=== PATIENT | male | born 1990 | race Caucasian/White ===

== ENCOUNTER 2020-09-04 18:09 | Emergency (ER) | payer BC, SELFPAY ==
[2020-09-04 18:10] VITALS: BP 150/84; PULSE 107; RESP 20; TEMP 38.8; O2SAT 97; BMI 40.7
--- NOTE | 2020-09-04 18:46 | HMH.EDUTC ---
[facility] [place] Disposition Clinical Impression: Viral upper respiratory illness Disposition: Home, Self-Care Condition on Discharge: Good Instructions: DI for Viral Upper Respiratory Infection -- Adult Additional Instructions: *Monitor Temp, Over the counter Motrin or Tylenol as directed/as needed Tylenol every 4 hours and Motrin every 6 hours (as long as your family doctor has told you that you can take it) for fever or pain. and straight to ER if unable to lower temp less than 101.0 after medication given *Warm salt water gargles may help to soothe the throat *Throat Lozenges *Warm fluids like tea with honey may help to soothe the throat *Sleep elevated *Humidifier/Vaporizer *Flonase 2 sprays in each nostril daily but be aware that it may take 2-3 days before you notice improvement *Start Oral steriods tomorrow 09/05/20 You were tested for today for COVID19 your test result should be back in the next 24-48 hours, you may call to the [facility] to see if your test results are back in the next 48 hours [phone] [facility] hours are 9am-9pm You was given a handout with instructions for Self Quarantine and Self isolation for while you wait on test results and what to do if they are positive If you are positive the Health Dept will be contacting you also Follow up IMMEDIATELY for new or worsening symptoms or no Noticeable improvement over the next 48-72 hours. 911 for difficulty breathing or swallowing Prescriptions: methylPREDNISolone [Medrol 4mg tab] 4 mg PO DIRECTED #21 tab Transmission Status: Pending to [facility] #[id number] Referrals: Provider,Referral, MD [Primary Care Provider] - As needed Forms: Work/School Release Time of Disposition: 19:23 Medical Decision Making - Fritz Inquiry Pt receiving controlled substance: No Fritz was queried for this patient: No Vital Signs: 09/04/20 18:10 09/04/20 19:10 Temperature 101.8 F H 101.8 F H Temperature Source Oral Pulse Rate 107 H Pulse Rate [Left Brachial] 107 H Respiratory Rate 20 20 Blood Pressure 150/84 H Blood Pressure [Left Arm] 150/84 H Blood Pressure Mean [Left Arm] 106 Blood Pressure Source [Left Arm] Automatic Cuff Blood Pressure Position [Left Arm] Sitting 02 Sat by Pulse Oximetry 97 Oxygen Delivery Method Room Air Orders (Tests/Meds): ED MEDICATIONS Discontinued Medications Generic Name Dose Route Start Last Admin Trade Name Louie PRN Reason Stop Dose Admin Ibuprofen 800 mg 09/04/20 18:33 09/04/20 18:36 Ibuprofen 400 Mg Tablet PO 09/04/20 18:34 800 mg ONCE ONE Administration Methylprednisolone Sodium Succinate 125 mg 09/04/20 18:54 09/04/20 19:00 Methylprednisolone Sod Succ 125mg Vial IM 09/04/20 18:55 125 mg ONCE ONE Administration ORDERS Category Date Time Status Full Resp Panel w/COVID ([facility]) Routine Lab 09/04/20 19:05 Received [facility] [place] HPI - General Stated complaint: Pain behind eyes, head congestion Time Seen by Provider: 09/04/20 18:47 Mode of Arrival: Ambulatory Source of Information: Patient Limitations: No Limitations Description of Symptoms (Recalled from Triage Doc. by RN): PATIENT C/O SINUS PRESSURE, RUNNY NOSE, CHILLS, AND WATERY EYES X 2 DAYS HEENT Symptoms (Recalled from RN notes): Yes Resp Symptoms (Recalled from RN notes): No Skin Symptoms (Recalled from RN notes): No MS Symptoms (Recalled from RN notes): No Functional Status (Recalled from RN notes): WNL - History of Present Illness Provider Complaint: Patient states that for the last couple of days his allergies have been bothering him States that he has been having itching and watery eyes, nasal congestion, pressure behind his eyes runny nose State that today it was worse State that he was having chills, body aches and still having pressure in his sinuses States that drainage from sinuses has been clear State that he wasnt sure if it was allergies or a headcold but came in to get checked - Related Data Previous Rx's Medicatio
[2020-09-04 19:08] LABS: Adenovirus,PCR Not Detected (NotDetected); Bordetella Pertussis Not Detected (NotDetected); Chlamydophila Pneumoniae, PCR Not Detected (NotDetected); Coronavirus 19, PCR Not Detected (NotDetected); Coronavirus 229E Not Detected (NotDetected); Coronavirus NL63 Not Detected (NotDetected); Coronavirus OC43 Not Detected (NotDetected); Coronovirus HKU1,PCR Not Detected (NotDetected); Human Metapneumovirus Not Detected (NotDetected); Influenza A, PCR Not Detected (NotDetected); Influenza AH1, 2009 Not Detected (NotDetected); Influenza AH1, PCR Not Detected (NotDetected); Influenza AH3,PCR Not Detected (NotDetected); Influenza B, PCR Not Detected (NotDetected); Mycoplasma Pneumoniae, PCR Not Detected (NotDetected); Parainfluenza 1, PCR Not Detected (NotDetected); Parainfluenza 2, PCR Not Detected (NotDetected); Parainfluenza 4, PCR Not Detected (NotDetected); Respiratory Syncytial Virus Not Detected (NotDetected); Rhinovirus/Enterovirus Not Detected (NotDetected)
[2020-09-04 19:10] VITALS: BP 150/84; PULSE 107; RESP 20; TEMP 38.8; O2SAT 97
[2020-09-04 20:32] LABS: Parainfluenza 3, PCR Detected (NotDetected)
== END 2020-09-04 19:26 | disposition home or self-care (01) ==
PROVIDERS: Emergency Provider Nurse Practitioner
DX: J06.9 Acute upper respiratory infection, unspecified (principal)
CPT/HCPCS: 87581; 87633; 87798; 96372; 99202; G0463

== ENCOUNTER 2020-12-14 07:33 | Emergency (ER) | payer BC, SELFPAY ==
[2020-12-14 07:34] VITALS: BP 111/65; PULSE 65; RESP 16; TEMP 36.6; O2SAT 98; BMI 38.2
--- NOTE | 2020-12-14 07:41 | HMH.EDGENADL ---
ED Disposition Clinical Impression: Viral upper respiratory illness Disposition: Home, Self-Care Condition on Discharge: Good Instructions: Hand, Foot, and Mouth Disease Additional Instructions: Avoid touching your mouth, nose. Practice good hand hygiene. Tylenol/Motrin as needed for aches and pains. Wjdj-lqp-ibcfrwb creams if you develop severe itching. PCP in 1 to 2 days. Referrals: Provider,Referral, [Primary Care Provider] - Time of Disposition: 07:44 - Critical Care Critical Care Time: No Attestation: On , the high probability of a clinically significant, sudden or life threatening deterioration of the following system(s) required my full and direct attention, intervention and personal management. The time I documented below is in addition to time spent performing reported procedures but includes the following listed in this critical care notation. Medical Decision Making - Medical Records Medical records reviewed: Yes: I reviewed the patient's medical records. - Fritz Inquiry Pt receiving controlled substance: No Medical Decision Narrative: Patient evaluated with concern for possible lzch-dhqo-fgm-mouth disease. He is in no acute distress on this evaluation. His vital signs are stable. His physical exam is unremarkable except for a few scattered lesions about his nose and mouth. Counseled this is a virus and only supportive care. Appropriate stable for discharge home. General Adult HPI - General Stated complaint: sore throat, cough, congestion, HFM exposure Time Seen by Provider: 12/14/20 07:41 - History of Present Illness HPI narrative: 30yo M reports the emergency department with concern for possible hand foot and mouth disease. Patient reports child has tdqb-tpfx-jjn-mouth disease from daycare. He also complains of mild runny nose and cough. The cough is been ongoing for greater than a week. He noticed the lesions around his mouth 1 to 2 days ago. He states the ones on his nose are more itchy than his perioral lesions. - Related Data Previous Rx's Medication Instructions Recorded methylPREDNISolone [Medrol 4mg 4 mg PO DIRECTED #21 tab 09/04/20 tab] Allergies Allergy/AdvReac Type Severity Reaction Status Date / Time acetaminophen [From Tylenol] Allergy Verified 09/04/20 18:32 [facility] History - Hepatitis A Screen Drug use history?: No Attestation statement:: This patient has been screened for Hepatitis A risk factors. I have reviewed the patient's past medical history: Yes - Social History Alcohol Intake: never Occupational Status: other ROS Obtained: Yes All systems reviewed & no additional complaints - Integumentary/Breasts Skin/Breast: Reports as per HPI Physical Exam - General General appearance: alert, in no apparent distress - Head Head exam: atraumatic - Eye Eye exam: Present: normal appearance, PERRL, EOMI - ENT ENT exam: Present: normal exam, normal oropharynx, mucous membranes moist - Respiratory Respiratory exam: Present: normal lung sounds bilaterally. Absent: respiratory distress - Cardiovascular Cardiovascular exam: Present: regular rate, normal rhythm. Absent: JVD - Neurological Exam Neurological exam: Present: alert, oriented X3 - Psychiatric Psychiatric exam: Present: normal affect, normal mood - Skin Skin exam: Present: warm, dry, intact, normal color, other (Very few scattered lesions about the patient's nose and mouth)
[2020-12-14 07:50] VITALS: BP 111/71; PULSE 65; RESP 16; TEMP 36.6; O2SAT 98
== END 2020-12-14 07:50 | disposition home or self-care (01) ==
LOC: ER 07:51
PROVIDERS: Emergency Provider Emergency Medicine
DX: M94.0 Chondrocostal junction syndrome [Tietze] (principal)
CPT/HCPCS: 99281

== ENCOUNTER → 2021-03-04 10:36 | Outpatient (CLI) | payer BC, SELFPAY | PROVIDERS: Visit Provider Nurse Practitioner | DX: U07.1 COVID-19 (principal) | CPT/HCPCS: C9803; U0003; U0005 ==

== ENCOUNTER 2021-03-15 09:43 | Emergency (ER) | payer BC, SELFPAY ==
--- NOTE | 2021-03-15 11:13 | XR_ITS ---
FINAL REPORT CLINICAL HISTORY: covid positive soa, weakness FINDINGS: TWO VIEWS OF THE CHEST The heart is normal in size. The mediastinum is unremarkable. The lungs are clear. There is no pneumothorax. IMPRESSION: No acute cardiopulmonary process. Reviewed, Interpreted and Dictated by Moe Solano III, MD Transcribed by Yue Kiran Authenticated by Moe Solano III, MD on 03/15/2021 12:41:[address] [facility]
[2021-03-15 11:14] VITALS: BP 122/72; BP 130/69; BP 136/83
[2021-03-15 11:19] VITALS: BP 122/72; PULSE 73; RESP 18; TEMP 36.9; O2SAT 98; BMI 38.7
--- NOTE | 2021-03-15 11:45 | HMH.EDUTC ---
[facility] [place] Disposition Clinical Impression: COVID-19 Disposition: Home, Self-Care Condition on Discharge: Good Instructions: Preventing the Spread of Coronavirus Discharge Instructions, DI for COVID-19 (Suspected or Confirmed ), Ondansetron Additional Instructions: Drink plenty of fluids. Water or gatorade (or another sports electrolyte drink) would be best. Take tylenol or ibuprofen for pain or fever. Take the medications as directed. Follow up with your regular doctor. GO TO THE ER FOR ANY WORSENING SYMPTOMS Take the zofran for nausea. Prescriptions: Albuterol Sulfate [Albuterol Sulfate Hfa] 2 puffs IH Q6HP PRN 30 Days #1 each PRN Reason: Shortness Of Breath Transmission Status: Pending to [facility] # Brompheniramine/Pseudoephed/Dm [Bromfed Dm Cough Syrup] 5 ml PO Q6HP PRN #240 ml PRN Reason: Cough Transmission Status: Pending to [facility] # Ondansetron [Zofran 4mg ODT] 4 mg PO Q8HP PRN #20 tab PRN Reason: Nausea Transmission Status: Pending to [facility] # Referrals: Provider,Referral, MD [Primary Care Provider] - Time of Disposition: 12:11 Medical Decision Making - Medical Records Medical records reviewed: No: I reviewed the patient's medical records. - Fritz Inquiry Pt receiving controlled substance: No Vital Signs: 03/15/21 11:19 Temperature 98.4 F Temperature Source Oral Pulse Rate [Left] 73 Respiratory Rate 18 Blood Pressure [Right Arm] 122/72 Blood Pressure Mean [Right Arm] 88 02 Sat by Pulse Oximetry 98 Orders (Tests/Meds): ORDERS Category Date Time Status Chest XR 2 view (NOT portable) [XR chest 2V] Stat Exams 03/15/21 11:13 Taken [facility] [place] HPI - General Stated complaint: treated for covid symptoms Time Seen by Provider: 03/15/21 11:45 Mode of Arrival: Ambulatory Source of Information: Patient Limitations: No Limitations Description of Symptoms (Recalled from Triage Doc. by RN): pt c/o n/v/d x4 days. pt is covid positive. HEENT Symptoms (Recalled from RN notes): No Resp Symptoms (Recalled from RN notes): No Skin Symptoms (Recalled from RN notes): No MS Symptoms (Recalled from RN notes): No Functional Status (Recalled from RN notes): wnl - History of Present Illness Provider Complaint: He states that he has had covid-19 for the past 5 days. He denies significant shortness of breath. He has been having frequent diarrhea stools. He has had nausea but no vomiting. He does have a dry cough, but he denies significant chest congestion. - Related Data Previous Rx's Medication Instructions Recorded methylPREDNISolone [Medrol 4mg 4 mg PO DIRECTED #21 tab 09/04/20 tab] Albuterol Sulfate [Albuterol 2 puffs IH Q6HP PRN 30 Days #1 each 03/15/21 Sulfate Hfa] Brompheniramine/Pseudoephed/Dm 5 ml PO Q6HP PRN #240 ml 03/15/21 [Bromfed Dm Cough Syrup] Ondansetron [Zofran 4mg ODT] 4 mg PO Q8HP PRN #20 tab 03/15/21 Allergies Allergy/AdvReac Type Severity Reaction Status Date / Time red (food color) Allergy Hallucinati Verified 03/15/21 11:25 ng - Worker's Comp Is this a Worker's Comp case?: No [facility] History - Hepatitis A Screen Drug use history?: No High risk sexual behaviors?: No History of sexually transmitted infection?: No Currently employed?: No Childcare worker?: No Do you have indoor plumbing?: Yes Do you have electricity?: Yes Attestation statement:: This patient has been screened for Hepatitis A risk factors. I have reviewed the patient's past medical history: Yes - Social History Alcohol Intake: never Occupational Status: other ROS Obtained: Yes All systems reviewed & no additional complaints - Constitutional Constitutional: Reports as per HPI - Eyes Eyes: Denies eye discharge - ENT Ears, Nose, Mouth, and Throat: Reports as per HPI - Cardiovascular Cardiovascular: Denies chest pain - Respiratory Respiratory: Reports chest congestion, Reports cough,
[2021-03-15 12:21] VITALS: BP 122/72; PULSE 73; RESP 18; TEMP 36.9
== END 2021-03-15 12:22 | disposition home or self-care (01) ==
PROVIDERS: Emergency Provider Nurse Practitioner Family
DX: U07.1 COVID-19 (principal)
CPT/HCPCS: 71046; 99203; G0463

== ENCOUNTER 2022-01-28 08:13 | Emergency (ER) | payer BC, SELFPAY ==
--- NOTE | 2022-01-28 09:34 | EXP.UTC ---
Discharge Plan Disposition Patient Disposition: Home, Self-Care Condition: Good Prescriptions Prescriptions: New azithromycin [Zithromax] 250 mg tablet 250 mg PO UD DOSE PK Qty: 6 0RF Rx Instructions: Take two (2) tablets today, then one (1) tablet days #2 thru #5 benzonatate [benzonatate] 100 mg capsule 100 mg PO TIDP PRN (Reason: Cough) Qty: 30 0RF oseltamivir [Tamiflu] 75 mg capsule 75 mg PO BID Qty: 10 0RF methylprednisolone 4 mg Tablets,Dose Pack 4 mg PO DIRECTED Qty: 21 0RF No Action methylprednisolone 4 MG tablet 4 mg PO DIRECTED Qty: 21 0RF Rx Instructions: Take as directed on package instructions ondansetron 4 MG tablet,disintegrating 4 mg PO Q8HP PRN (Reason: Nausea) Qty: 20 0RF albuterol sulfate 8.5 GM HFA aerosol inhaler 2 puffs IH Q6HP PRN (Reason: Shortness Of Breath) 30 Days Qty: 1 5RF fcwmoudevwvihxv-vanvzjjem-LF 118 ML syrup 5 ml PO Q6HP PRN (Reason: Cough) Qty: 240 0RF Referrals Follow up/Referrals: Provider,Referral, MD [Primary Care Provider] - See instructions Activity Restrictions/Add. Instructions Additional Instructions/Restrictions: Drink plenty of fluids. Take tylenol or ibuprofen for pain or fever. Take the medications as directed. Follow up with your regular doctor. GO TO THE ER FOR ANY WORSENING SYMPTOMS Clinical Impressions Clinical Impression: Influenza A Stand Alone Forms Stand Alone Forms: Work/School Release Instructions Patient Instructions: DI for Influenza -- Adult, Oseltamivir Discharge ED Provider: Johnie Camarillo [facility] General Stated complaint: congestion, cough Time Seen by Provider: 01/28/22 09:34 History of Present Illness Provider Complaint: He states that for the past 1 day he has had body aches, chills, fever and malaise. He has a productive cough with greenish sputum also. Related Data Previous Rx's Medication Instructions Recorded methylprednisolone 4 mg tablet 4 mg PO DIRECTED #21 tabs 09/04/20 albuterol sulfate 90 mcg/actuation 2 puffs IH Q6HP PRN Shortness Of 03/15/21 aerosol inhaler Breath 30 days #1 ea kdakrxacutzdfzn-neyshgtssjiqajx-VQ 5 ml PO Q6HP PRN Cough #240 mL 03/15/21 2 mg-30 mg-10 mg/5 mL oral syrup ondansetron 4 mg disintegrating 4 mg PO Q8HP PRN Nausea #20 tabs 03/15/21 tablet azithromycin 250 mg tablet 250 mg PO UD DOSE PK #6 tabs 01/28/22 (Zithromax) benzonatate 100 mg capsule 100 mg PO TIDP PRN Cough #30 caps 01/28/22 methylprednisolone 4 mg tablets in 4 mg PO DIRECTED #21 tabs 01/28/22 a dose pack oseltamivir 75 mg capsule (Tamiflu) 75 mg PO BID #10 caps 01/28/22 Allergies Allergy/AdvReac Type Severity Reaction Status Date / Time red (food color) Allergy Hallucinati Verified 01/28/22 09:[address] [facility] Social History Smoking Status: Never smoker alcohol intake: never current occupational status: other Travel in the last 8 weeks: None ROS Obtained: Yes All systems reviewed & no additional complaints except as documented Constitutional Constitutional: Reports chills and Reports fever(s) Eyes Eyes: Denies eye discharge ENT Ears, Nose, Mouth, and Throat: Reports as per HPI Cardiovascular Cardiovascular: Denies chest pain Respiratory Respiratory: Denies chest congestion and Reports cough Gastrointestinal Gastrointestingal: Reports nausea; Denies abdominal pain, constipation, cramping, diarrhea or vomiting Musculoskeletal Musculoskeletal: Denies arthralgias Integumentary/Breasts Skin/Breast: Denies rash Neurologic Neurologic: Denies paresthesias Physical Exam General General appearance: alert and in no apparent distress Head Head exam: atraumatic, normocephalic and normal inspection Eye Eye exam: Present normal appearance, PERRL and EOMI ENT ENT exam: Present normal exam, normal oropharynx, mucous membranes moist, TM's normal bilaterally and normal ext
[2022-01-28 09:41] LABS: UTC Strep Screen (Rapid) Negative (Negative)
[2022-01-28 09:42] LABS: UTC Influenza A Antigen Positive (Negative); UTC Influenza B Antigen Negative (Negative)
[2022-01-28 09:46] VITALS: BP 124/81; PULSE 86; RESP 18; TEMP 36.4; O2SAT 95; BMI 40.8
[2022-01-28 10:37] VITALS: BP 124/81; PULSE 86; RESP 18; TEMP 36.4
== END 2022-01-28 10:37 | disposition home or self-care (01) ==
PROVIDERS: Emergency Provider Nurse Practitioner Family
DX: J10.1 Influenza due to other identified influenza virus with other respiratory manifestations (principal); R50.9 Fever, unspecified; R06.02 Shortness of breath; R09.81 Nasal congestion; R05.9 Cough, unspecified; R53.81 Other malaise; R11.0 Nausea; Z79.51 Long term (current) use of inhaled steroids; Z79.52 Long term (current) use of systemic steroids; Z79.899 Other long term (current) drug therapy; Z91.048 Other nonmedicinal substance allergy status
CPT/HCPCS: 87804; 87880; 99213; G0463

== ENCOUNTER 2023-03-03 08:10 | Emergency (ER) | payer BC, SELFPAY ==
[2023-03-03 08:25] VITALS: BP 131/86; PULSE 81; RESP 18; TEMP 36.9; O2SAT 99; BMI 43.7
[2023-03-03 08:47] LABS: UTC Strep Screen (Rapid) Negative (Negative)
[2023-03-03 08:48] LABS: UTC Influenza A Antigen Negative (Negative); UTC Influenza B Antigen Negative (Negative)
--- NOTE | 2023-03-03 09:03 | ED_ITS ---
Discharge Plan Disposition Patient Disposition: Home, Self-Care Condition: Good Prescriptions Prescriptions: New benzonatate 100 mg capsule 100 mg PO TID PRN (Reason: cough) Qty: 30 0RF methylprednisolone [Medrol (Emmett)] 4 mg tablets,dose pack See Rx Instructions .Route .COMPLEX 6 Days Qty: 21 0RF Rx Instructions: taper pack; guaifenesin [Mucinex] 600 mg tablet extended release 12hr 1,200 mg PO BID PRN (Reason: cough) Qty: 20 0RF amoxicillin-pot clavulanate 875-125 mg Tablet 1 tab PO Q12H Qty: 20 0RF Referrals Follow up/Referrals: Provider,Referral, MD [Primary Care Provider] - See instructions Activity Restrictions/Add. Instructions Additional Instructions/Restrictions: * Start antibiotic today. Be sure to complete entire prescription even if feeling better * Monitor temp. Tylenol every 4 hours as needed and / or ibuprofen every 6 hours as needed ( As long as your primary care physician has told you that it ok to take both. For fever/aches/pains ER if no less than 101 despite Tylenol or Motrin * Humidifier/vaporizer or hot steamy shower * Mucinex during the day for your cough and cough suppressant only at night. Be sure to drink lots of water. *Tessalon Perles will not cause drowsiness but use at bedtime to help stop cough so that you may get some rest. *Start steroid today. Helps with inflammation therefore, cough and wheezing. Follow directions on the package. Reviewed side effects. Patient reports taking them before. Follow up IMMEDIATELY for new or worsening of symptoms OR no noticeable improvement over the next 48-72 hours. 911 immediately for any life threatening symptoms such as chest pain or difficulty breathing Clinical Impressions Clinical Impression: Otitis media Qualifiers: Otitis media type: unspecified Laterality: left Qualified Code(s): H66.92 - Otitis media, unspecified, left ear Stand Alone Forms Stand Alone Forms: Work/School Release Instructions Patient Instructions: Cough, DI for Sinusitis, Middle Ear Infection Discharge ED Provider: Keena Burch [facility] [facility] [place] General Stated complaint: headache, sore throat, congestion Mode of Arrival: Ambulatory Source of Information: Patient Limitations: No Limitations Time Seen by Provider: 03/03/23 09:03 Description of Symptoms (Recalled from Triage Doc. by RN): PATIENT C/O WEAKNESS, SOA, HEADACHE, SORE THROAT, AND FEVERS AT NIGHT HEENT Symptoms (Recalled from RN notes): Yes Resp Symptoms (Recalled from RN notes): Yes Skin Symptoms (Recalled from RN notes): No MS Symptoms (Recalled from RN notes): No Functional Status (Recalled from RN notes): WNL History of Present Illness Provider Complaint: Patient states that he has been sick for about 4-5 days States that he has been having some sinus congestion, sore throat, ear fullness, cough, chills and feeling like at times he may have a fever, and dry cough States that today he was still not feeling any better so he came in to get checked Related Data Previous Rx's Medication Instructions Recorded amoxicillin 875 mg-potassium 1 tab PO Q12H #20 tabs 03/03/23 clavulanate 125 mg tablet benzonatate 100 mg capsule 100 mg PO TID PRN cough #30 caps 03/03/23 guaifenesin 600 mg tablet, 1,200 mg PO BID PRN cough #20 tabs 03/03/23 extended release 12 hr (Mucinex) methylprednisolone 4 mg tablets in See Rx Instructions .Route 03/03/23 a dose pack (Medrol (Emmett)) .COMPLEX 6 days #21 tabs Allergies Allergy/AdvReac Type Severity Reaction Status Date / Time red (food color) Allergy Hallucinati Verified 01/28/22 09:50 ng Worker's Comp Is this a Worker's Comp case?: No [facility] Disclaimer: The information contained in this section may have been updated after the patient was seen, as this information can be updated by other users. Social History (Updated 01/28/22 @ 10:26 by Johnie Camarillo APRN) Smoking Status: Never smoker alcohol intake: never current occupational status: other Travel in the last 8 weeks: None ROS Obtained: Yes All systems reviewed & no additional complaints except as documented and Yes Systems reviewed as appropriate & no additional complaints except as documented Constitutional Constitutional: Reports system reviewed and no additional complaints, except as documented, Reports as per HPI, Reports body ache, Reports fever(s) and Reports headache(s) ENT Ears, Nose, Mouth, and Throat: Reports system reviewed and no additional complaints, except as documented, Reports as per HPI, Reports otalgia, Reports headache(s), Reports nasal congestion and Reports sore throat Cardiovascular Cardiovascular: Reports system reviewed and no additional complaints, except as documented and Reports as per HPI Respiratory Respiratory: Reports system reviewed and no additional complaints, except as documented, Reports as per HPI, Reports chest congestion and Reports cough Gastrointestinal Gastrointestingal: Reports system reviewed and no additional complaints, except as documented and as per HPI Neurologic Neurologic: Reports headache(s) Physical Exam General General appearance: alert and in no apparent distress ENT ENT exam: Present mucous membranes moist Expanded ENT Exam TM/Canal exam: Left TM: erythema and Bilateral TM: bulging Throat exam: Present other (Pharyngeal erythema noted with PND) Respiratory Respiratory exam: Present normal lung sounds bilaterally; Absent respiratory distress or wheezes Cardiovascular Cardiovascular exam: Present regular rate, normal rhythm and normal heart sounds Abdominal Exam Abdominal exam: Present soft and normal bowel sounds; Absent distention or tenderness Neurological Exam Neurological exam: Present alert, oriented X3 and normal gait Medical Decision Making Fritz Inquiry Pt receiving controlled substance: No Fritz was queried for this patient: No Vital Signs: 03/03/23 08:25 Temperature 98.5 F Temperature Source Oral Pulse Rate [Right Brachial] 81 Respiratory Rate 18 Blood Pressure [Right Arm] 131/86 Blood Pressure Mean [Right Arm] 101 Blood Pressure Source [Right Arm] Automatic Cuff Blood Pressure Position [Right Arm] Sitting 02 Sat by Pulse Oximetry 99 Oxygen Delivery Method Room Air Lab Data Lab results reviewed: Yes I reviewed the patient's lab results. Lab Results 03/03/23 08:23: Influenza Type A Ag Negative, Influenza Type B Ag Negative, Strep Scn Rapid Clinic Negative Orders (Tests/Meds): ORDERS Category Date Time Status Strep Screen Confirmation Stat Micro 03/03/23 08:23 Received
[2023-03-03 09:10] VITALS: BP 131/86; PULSE 81; RESP 18; TEMP 36.9; O2SAT 99
== END 2023-03-03 09:16 | disposition home or self-care (01) ==
PROVIDERS: Emergency Provider Nurse Practitioner
DX: H66.92 Otitis media, unspecified, left ear (principal); J01.90 Acute sinusitis, unspecified; R50.9 Fever, unspecified; R51.9 Headache, unspecified; R07.0 Pain in throat; R09.81 Nasal congestion; R05.9 Cough, unspecified; M79.18 Myalgia, other site
CPT/HCPCS: 87804; 87880; 99212; 99214; G0463

== ENCOUNTER 2025-02-02 13:13 | Outpatient (CLI) | payer BC, SELFPAY ==
[2025-02-02 14:54] LABS: Hematocrit 50.8 % (42.0-52.0); Hemoglobin 16.6 g/dL (14.1-18.0); Immature Granulocytes % 0.3 %; Mean Corpuscular HGB Conc 32.7 g/dL (31.8-35.4); Mean Corpuscular Hemoglobin 27.7 pg (27.0-31.2); Mean Corpuscular Volume 84.8 fl (80-94); Nucleated Red Blood Cells % 0 %; Platelet Count 221 K/mm3 (142-424); Red Blood Count 5.99 M/mm3 (4.60-6.20); Red Cell Distribution Width-SD 40.9 fL; White Blood Count 7.6 K/mm3 (4.8-10.8)
[2025-02-02 15:42] LABS: Alanine Aminotransferase 32 U/L (12-78); Albumin Level 5.1 g/dl (3.5-5.0); Albumin/Globulin Ratio 1.9 (1.1-1.8); Alkaline Phosphatase 77 U/L (38-126); Anion Gap 13.2 mEq/L (5-15); Aspartate Amino Transferase 25 U/L (17-59); Bilirubin,Total 1.5 mg/dl (0.2-1.3); Blood Urea Nitrogen 14 mg/dl (9-20); Calcium 10.0 mg/dl (8.4-10.2); Carbon Dioxide 28 mmol/L (22.0-30.0); Chloride 99 mmol/L (98-107); Cholesterol 211 mg/dl (140-200); Creatinine,Serum 0.90 mg/dl (0.66-1.25); Estimated Glomerular Filt Rate 96 ml/min (>60); GFR (African American) 116 ML/MIN (>60); Globulin 2.7 g/dL (1.3-3.2); Glucose 105 mg/dl (74-100); HDL Cholesterol 40 mg/dl (40-60); Potassium 4.2 mmoL/L (3.5-5.1); Sodium 136 mmol/L (136-145); Total Protein,Serum 7.8 g/dl (6.3-8.2); Triglycerides 144 mg/dl (30-150)
[2025-02-02 15:54] LABS: Free T4 (Free Thyroxine) 1.40 ng/dl (0.78-2.19)
[2025-02-02 16:11] LABS: Thyroid Stimulating Hormone 0.98 uIU/mL (0.465-4.68)
[2025-02-02 17:47] LABS: Hemoglobin A1C 6.1 % (4.0-6.0)
[2025-02-02 17:51] LABS: Hepatitis C Ab Qual. W/ RFX NEGATIVE (Negative)
[2025-02-03 07:10] LABS: Hepatitis B Surface Antigen Negative (Negative)
--- OUTSIDE RECORDS SUMMARY | 2025-02-05 13:14 | XMS_ITS | Clinical Summary ---
Author Organization Healthcare Address [address] [place] [address] Care Team Providers Care Jet Man Name Role Phone Unavailable Primary Care Provider Unavailabl e Family History Medical History Relation Name Comments Diabetes Maternal Grandfather Diabetes Maternal Grandmother Relation Name Status Comments Maternal Grandfather Maternal Grandmother Social History Tobacco Use Types Packs/Day Years Used Date Smoking Tobacco: Never Alcohol Use Standard Drinks/Week Comments Yes 0 (1 standard drink = 0.6 oz pure alcohol) Alcoholic Drinks/day: Occasional alcohol use Sex and Gender Information Value Date Recorded Sex Assigned at Not on file Legal Sex Male 7:39 PM EDT Gender Identity Not on file Sexual Orientation Not on file Last Filed Vital Signs Vital Sign Reading Time Taken Comments Blood Pressure 130/93 04/05/2020 4:06 PM EST Pulse 83 04/05/2020 4:06 PM EST Temperature - - Respiratory Rate - - Oxygen Saturation - - Inhaled Oxygen Concentration - - Weight 134 kg (296 lb 4.8 oz) 04/05/2020 4:06 PM EST Height 177.8 cm (5' 10 ) 04/05/2020 4:06 PM EST Body Mass Index 42.51 04/05/2020 4:06 PM EST Plan of Treatment Upcoming Encounters Date Type Department Care Team (Late st Contact Info) Description 03/17/2025 7:40 AM EST Office Visit [facility] [place] [address] Charlotte [place] [address] Health Maintenance Due Date Last Done Comments [facility]-Depression Screening 1989 [facility]-HIV Screening 1989 [facility]-Hepatitis C Screening 1989 [facility]-Infant/Child/Adol SDOH Screenings 1989 [facility]-Varicella Vaccines (1 of 2 - 13+ 2-dose series) 2002 [facility]- SDOH Screenings 06/16/2007 [facility]-Adult SDOH Screenings 06/16/2007 [facility]-Hepatitis B Vaccines (1 of 3 - 19+ 3-dose series) 2008 HPV Vaccines (1 - 3-dose SCDM series) 2016 [id number] Vaccine (1 - 2024-26 season) 2024 [facility]-Influenza Vaccine (#1) 2024 [facility]-DTaP,Tdap,and Td Vaccines (3 - Td or Tdap) 03/13/2026 03/13/2016, 08/04/2003 [facility]-Zoster Vaccines (1 of 2) 06/16/2039 [facility]-HIB Vaccines Aged Out No longer e ligible based on patient's age to complete this topic [facility]-Hepatitis A Vaccines Aged Out No longer eligible based on patient's age to complete this topic [facility]-IPV Vaccines Aged Out No longer e ligible based on patient's age to complete this topic [facility]-Pneumococcal Vaccine: Pediatrics (0 to 5 Years) and At-Risk Patients (6 to 49 Years) Aged Out No longer eligible b ased on patient's age to complete this topic [facility]-Rotavirus Vaccines Aged Out No lo nger eligible based on patient's age to complete this topic Insurance [employer]
--- OUTSIDE RECORDS SUMMARY | 2025-02-05 13:15 | XMS_ITS | Clinical Summary ---
Author Organization [facility] Address [address] [place] [address] Phone Care Team Providers Care Internet Sales Associate Name Role Phone Unavailable Primary Care Provider Unavailabl e Allergies Active Allergy Reactions Criticality Noted Date Comments Acetaminophen Other (See Comments) 03/17/2024 hallucinations Medications No known medications Active Problems No known active problems Family History Relation Name Status Comments Father Alive Mother Alive Social History Tobacco Use Types Packs/Day Years Used Date Smoking Tobacco: Never Smokeless Tobacco: Never Tobacco Cessation:Counseling Given: Not Answered Alcohol Use Standard Drinks/Week Comments Not Currently 0 (1 standard drink = 0.6 oz pur e alcohol) rare Sex and Gender Information Value Date Recorded Sex Assigned at Not on file Legal Sex Male 3:24 PM EST Gender Identity Not on file Sexual Orientation Not on file Last Filed Vital Signs Vital Sign Reading Time Taken Comments Blood Pressure 136/84 03/17/2024 2:19 PM EST Pulse 72 03/17/2024 2:19 PM EST Temperature 36.4 C (97.6 F) 03/17/2024 2:19 PM EST Respiratory Rate - - Oxygen Saturation - - Inhaled Oxygen Concentration - - Weight 141.1 kg (311 lb 1.6 oz) 03/17/2024 2:19 PM EST Height 177.8 cm (5' 10 ) 03/17/2024 2:19 PM EST Body Mass Index 44.64 03/17/2024 2:19 PM EST Plan of Treatment Health Maintenance Due Date Last Done Comments Annual Wellness Exam 1992 Hepatitis B Vaccine (1 of 3 - 19+ 3-dose series) 2008 COVID-19 Vaccine (2024-2 6 season) 2024 Influenza Vaccine (#1) 2024 DTaP/TDaP/Td (3 - Td or Tdap) 03/13/2026, 08/04/2003 Meningococcal B Vaccine Aged Out No l onger eligible based on patient's age to complete this topic Pneumococcal Vaccine 0-49 Aged Out No longer eligible based on patient's age to complete this topic Insurance ANTHEM PPO ANTHEM PPO ANTHEM PPO
== END 2025-02-02 23:59 | disposition home or self-care (01) ==
LOC: LAB.DROPOF 02-05 13:13
PROVIDERS: PCP Student in an Organized Health Care Education/Training Program; Visit Provider Student in an Organized Health Care Education/Training Program
DX: G47.30 Sleep apnea, unspecified (principal); Z68.42 Body mass index [BMI] 45.0-49.9, adult; Z83.3 Family history of diabetes mellitus; Z11.59 Encounter for screening for other viral diseases; R73.03 Prediabetes; E66.9 Obesity, unspecified; Z13.6 Encounter for screening for cardiovascular disorders
CPT/HCPCS: 80053; 80061; 83036; 84439; 84443; 85025; 86803; 87340; 87389